=== PATIENT | male | born 1965 | race Caucasian/White ===

== ENCOUNTER 2023-10-20 11:08 | Emergency (ER) | payer OTHER, SELFPAY ==
[2023-10-20 11:10] VITALS: BP 158/93
[2023-10-20 11:21] VITALS: BP 145/87
[2023-10-20 12:00] VITALS: BP 155/83
--- NOTE | 2023-10-20 12:25 | ED.GENMED ---
History of Present Illness
General
Chief Complaint: Heart Rate Problem
Time Seen by Provider: 10/20/23 11:44
Travel History
Have you had any contact with someone who has COVID-19?: No
Do you have any symptoms of coronavirus? Fever > 100 degrees, chills, cough, shortness of breath, sore throat, loss of taste or smell, muscle aches, or headache?: No
History of Present Illness
History of Present Illness:
Patient is a 58 yo male with pmhx of asthma, hyperlipidemia, and GERD, here today for evaluation of an episode of palpitations and elevated heart rate that began just prior to arrival at approximately 10 AM while the patient was at the gym. Patient
reports he was exerting himself but found that his heart rate went between 180 to 190. This is not typical for the patient when he exerts himself. This lasted for a short period of time and came down with rest. Patient had no active symptoms
during the time of the heart rate elevation including chest pain, shortness of breath, dizziness, numbness, tingling, or weakness. He did note mild left-sided shoulder pain earlier but reports this is chronic and unchanged. He is currently
asymptomatic. No history of atrial fibrillation. He was previously seen by a senior interaction designer and reports going every 6 months.
Past History
Past History
ED Past Medical History: GERD
ED Past Surgical History: None
Social History
Tobacco: Non-smoker
Alcohol: None
Living: with family
Employment: Employed
Family History
Family History: Other (Noncontributory)
Review of Systems
Review of Systems
All Other Systems: ROS reviewed and negative except as documented in HPI and ROS
Phy Exam
Physical Exam
Physical Exam:
GENERAL: Alert , in no apparent distress
EYE: pupils equal and reactive
NECK: Supple, no significant adenopathy.
ENT: o/p clr, mmm.
CARDIAC: Regular rate and rhythm .
LUNGS: Clear breath sounds bilaterally, no acute respiratory distress, no wheezes/rales/rhonchi
ABDOMEN: Soft, without focal tenderness, no r/g, no cvat
NEUROLOGICAL: Alert and oriented, no focal neuro deficits
SKIN: Warm and dry, skin intact.
MUSCULOSKELETAL: No edema, well perfused.
PSYCH: Normal and appropriate interaction.
Course
Orders/Labs/Results
Orders:
Orders
10/20/23 11:14
Electrocardiogram (*1) Urgent
Reason for Study: Tachycardia
EKG- Treatment ONCE
10/20/23 12:18
CR Chest - 2 Views Urgent
Comment:
Reason For Exam: palpitations
10/20/23 12:34
Basic Metabolic Panel Urgent
Magnesium Urgent
Phosphorus Urgent
TSH Reflex To Free T4 Urgent
10/20/23 12:35
Complete Blood Count/With Diff Urgent
Troponin I Urgent
10/20/23 13:48
Diphenhydramine [Benadryl] 25 mg IV NOW STA
Prochlorperazine [Compazine] 10 mg IV NOW STA
Abnormal Lab Results
10/20/23 10/20/23
12:34 12:35
MPV 11.7 H fL
(7.4-10.4)
Absolute Lymphs (auto) 1.1 L 10^3/uL
(1.2-3.4)
Neutrophils % 77.9 H %
(42.2-75.2)
Lymphocytes % 14.1 L %
(20.5-51.1)
BUN 22 H mg/dl
(9-20)
10/20/23 12:35
10/20/23 12:34
Vital Signs
Initial and Last Documented VS:
Initial Vital Signs
Temp Pulse Resp BP Pulse Ox
97.7 F 98 22 158/93 96
10/20/23 11:10 10/20/23 11:10 10/20/23 11:10 10/20/23 11:10 10/20/23 11:10
Last Documented Vital Signs
Temp Pulse Resp BP Pulse Ox
97.7 F 81 16 155/83 97
10/20/23 11:10 10/20/23 13:45 10/20/23 13:45 10/20/23 12:00 10/20/23 12:15
MDM/Problems Addressed
Differential Diagnosis Includes:
Patient is a 58 yo male with pmhx of asthma, hyperlipidemia, and GERD, here today for evaluation of an episode of palpitations and elevated heart rate. Overall, patient appears well. He is currently asymptomatic. Vital signs remarkable for an
elevated blood pressure. Physical examination described above. Will place on adult education professional. Will obtain workup.
10/20/2023 13:35: Screening labs grossly within normal limits aside from a mildly elevated BUN of 22. Creatinine 1.2. This is slightly elevated from the patient's baseline of 1.0. EKG nonischemic. Chest x-ray negative. Patient monitored in the
emergency department without acute events. No recurrence of symptoms. Vital signs stable. Discussed treatment options with patient. Discussed observation in the hospital for further monitoring but patient declined. He does not want to be admitted
and would prefer to follow up with his doctor as an outpatient. At this time, patient appears well and suitable for discharge with close outpatient follow-up with cardiology. Patient will likely require a Holter monitor evaluation. Patient voices
understanding. He appears well and stable for discharge. Return precautions given for worsening symptoms. All questions answered.
*Critical Care Note
Total Time (30-74mins, 75-104mins- exclusive of procedures): Not Applicable
ED Attending Note
-
Portions of this chart may have been created with voice recognition software.� Occasional wrong word or��sound alike� substitutions may have occurred due to the inherent limitations of voice recognition software.
Discharge Plan
Departure
Patient Disposition: Home (Routine Discharge)
Date of Disposition: 10/20/23
Time of Disposition: 13:59
Patient with high blood pressure during this ER visit?: Yes
Condition: Good
Covid-19: Not Applicable
Discharge Problem:
Palpitations
Instructions: Palpitations (DC)
Prescriptions:
No Action
omeprazole 20 MG capsule,delayed release(DR/EC)
20 mg PO DAILY Qty: 0 0RF
prednisone 20 MG tablet
20 mg PO BID Qty: 10 0RF
famotidine 20 MG tablet
20 mg PO BID Qty: 10 0RF
Referrals:
Maikol Brown DO [Active] - Follow up in 1 week
John Perez MD [Family Provider] - Follow up in 2-3 days
Activity Restrictions/Additional Instructions:
You were seen today for evaluation of palpitations.
Your work workup is largely unremarkable.
Please monitor your symptoms and follow up closely with your doctor.
We also recommend following up with your senior interaction designer within 1 week.
Return for any new, worsening, or concerning symptoms.
Interventions
Interventions:
*Risk Screen - Suicide Last Done: 10/20/23 11:12
*General Assessment Last Done: 10/20/23 11:12
*Neglect/Abuse Screening Last Done: 10/20/23 11:12
ED- Fall Risk Assessment Last Done: 10/20/23 11:26
*ED COVID-19 Vaccine History Last Done: 10/20/23 11:12
ED- Cardiac Assessment Last Done: 10/20/23 11:26
ED- Pulmonary Assessment Last Done: 10/20/23 11:26
Discharge Date and Time
Print Language: ESTONIAN
[2023-10-20 12:49] LABS: % Basophils 0.4 % (0-2); % Eosinophils 0.5 % (0-6); % Immature Granulocytes 0.5 % (0-0.5); % Lymphocytes 14.1 % (20.5-51.1); % Monocytes 6.6 % (1.7-9.3); % Neutrophils 77.9 % (42.2-75.2); Absolute Lymphocytes 1.1 10^3/uL (1.2-3.4); Absolute Monocytes 0.5 10^3/uL (0.1-0.6); Absolute Neutrophils 5.8 10^3/uL (1.4-6.5); Hematocrit 44.5 % (39.0-52.0); Hemoglobin 14.7 g/dL (13.0-18.0); Mean Corpuscular Hgb 30.8 pg (27.0-31.0); Mean Corpuscular Volume 93.3 fL (80.0-94.0); Mean Platelet Volume 11.7 fL (7.4-10.4); Nucleated Red Blood Cells % 0 % (-); Platelet Count 235 10^3/uL (130-400); Red Blood Cell Count 4.77 10^6/uL (4.70-6.10); Red Cell Dist. Width 13.3 % (11.5-14.5); White Blood Cell Count 7.5 10^3/uL (4.8-10.8)
[2023-10-20 13:03] LABS: Blood Urea Nitrogen 22 mg/dl (9-20); Calcium 9.3 mg/dl (8.4-10.2); Carbon Dioxide 29 mmol/L (22-30); Chloride 104 mmol/L (98-107); Glucose 98 mg/dl (70-99); Magnesium 1.8 mg/dl (1.6-2.3); Phosphorus 2.8 mg/dl (2.5-4.5); Potassium 4.5 mmol/L (3.5-5.1); Sodium 137 mmol/L (135-145); eGFR > 60.00
[2023-10-20 13:06] LABS: Troponin I < 0.012 ng/ml
[2023-10-20 13:35] LABS: TSH Reflex To Free T4 1.93 uIU/ml (0.47-4.68)
== END 2023-10-20 14:06 | disposition home or self-care (01) ==
LOC: EMR 11:08
PROVIDERS: Physician Assistant; EMERGENCY PHYSICIAN Emergency Medicine; FAMILY PHYSICIAN Family Medicine
DX: R00.2 Palpitations (principal); J45.909 Unspecified asthma, uncomplicated; E78.00 Pure hypercholesterolemia, unspecified; K21.9 Gastro-esophageal reflux disease without esophagitis
CPT/HCPCS: 99283; 71046; 80048; 83735; 84100; 84443; 84484; 85025; 93005

== ENCOUNTER 2023-11-07 17:50 | Emergency (ER) | payer OTHER, SELFPAY ==
[2023-11-07 17:54] VITALS: BP 172/91
--- NOTE | 2023-11-07 18:21 | ED.GENMED ---
History of Present Illness
General
Chief Complaint: Chest Pain
Source: patient and spouse
Exam Limitations: none
Time Seen by Provider: 11/07/23 18:03
Nursing documentation reviewed up to this point in time: agreed with
Travel History
Have you had any contact with someone who has COVID-19?: No
Do you have any symptoms of coronavirus? Fever > 100 degrees, chills, cough, shortness of breath, sore throat, loss of taste or smell, muscle aches, or headache?: No
History of Present Illness
History of Present Illness:
58-year-old male with past medical history of hyperlipidemia asthma reflux presents the ER for evaluation of chest pain. Patient reports he had 2 episodes of chest pain today. His first episode was at 10 AM while sitting in his office he had
midsternal chest pain which lasted for about half hour. With that chest pain he had no associated shortness of breath nausea vomiting diaphoresis. Patient reports he had a second episode around [address] home[address] This pain was in his chest
clavicle area upper back area and he was nauseous. No shortness of breath. He also felt a little discomfort in his bilateral jaw region. He reports pain is barely they are almost gone. He has nitro at home but did not take it because he does not
like the way it makes him feel. He has a history of having intermittent episodes of chest pain in the past however has had unremarkable stress tests in past.
He is followed by Dr. Bland he has had episodes of chest pain in the past. He also reports he was seen here several weeks ago for elevated heart rate and just completed wearing his holter monitor today.
Past History
Past History
ED Past Medical History: GERD
ED Past Surgical History: None
Social History
Tobacco: Non-smoker
Alcohol: None
Living: with family
Employment: Employed
Family History
Family History: Other (Noncontributory)
Review of Systems
Review of Systems
Allergies reviewed?: Yes
All Other Systems: ROS reviewed and negative except as documented in HPI and ROS
Constitutional: Reports no symptoms; Denies fever, fatigue or chills
Respiratory: Denies trouble breathing
Cardiac: Reports chest pain
ABD/GI: Reports no symptoms
Musculoskeletal: Reports no symptoms
Skin: Reports no symptoms
Neurological: Reports no symptoms
Phy Exam
General Physical Exam
General Presentation: no apparent distress
General age: appears stated age
General Skin: warm and dry
General Habitus: obese
General Mental: alert
General Hydration: appears well hydrated
Cardiovascular Exam
Cardiovascular Exam: regular rate/rhythm
Pulmonary Exam
Pulmonary Exam: lungs clear and no respiratory distress
Neurological Exam
Neurological Exam: alert and oriented x3
Musculoskeletal Exam
Musculoskeletal Exam: full ROM
Skin Exam
Skin Exam: normal color and warm/dry
Psychiatric Exam
Psychiatric Exam: normal mood/affect
Scores
Heart Score for Chest Pain Patients
STEMI patient?: Not applicable
Course
Orders/Labs/Results
Orders:
Orders
11/07/23 17:51
ECG [Electrocardiogram (*1)] Urgent
Reason for Study: Chest Pain
EKG- Treatment ONCE
11/07/23 18:17
Complete Blood Count/With Diff Urgent
Comprehensive Metabolic Panel Urgent
PTT Urgent
Troponin I Urgent
11/07/23 19:56
Chest [CR Chest - 2 Views ] Urgent
Comment:
Reason For Exam: cp
11/07/23 19:59
EKG- Treatment ONCE
11/07/23 21:15
Electrocardiogram (*1) Stat
Reason for Study: Other
Other Reason for Exam: chest pain
11/07/23 21:25
Troponin I Urgent
Abnormal Lab Results
11/07/23
18:17
RBC 4.55 L 10^6/uL
(4.70-6.10)
MPV 11.4 H fL
(7.4-10.4)
Absolute Monos (auto) 0.7 H 10^3/uL
(0.1-0.6)
BUN 26 H mg/dl
(9-20)
11/07/23 18:17
11/07/23 18:17
Vital Signs
Initial and Last Documented VS:
Initial Vital Signs
Temp Pulse Resp BP Pulse Ox
98.0 F 71 20 172/91 96
11/07/23 17:54 11/07/23 17:54 11/07/23 17:54 11/07/23 17:54 11/07/23 17:54
Last Documented Vital Signs
Temp Pulse Resp BP Pulse Ox
98.0 F 68 20 138/70 96
11/07/23 17:54 11/07/23 20:15 11/07/23 20:15 11/07/23 20:00 11/07/23 20:15
MDM/Problems Addressed
MDM/Problems Addressed:
Patient is a 4-year-old male who had chest discomfort this morning at the office while sitting at his desk and again later this evening. Patient presented to the ER pain was barely there were resolved while he was here. He presented awake alert no
acute distress. He does see Dr. Bland. He actually just completed wearing a Holter monitor today for tachycardia. Patient was actually seen October 19 for palpitations and elevated heart rate.
Patient presented very nontoxic here in the ER with no acute findings on EKG. I reviewed patient's stress echo from just about a year ago September 2022 which was normal and overall low risk stress test. Patient also had a normal exercise stress test
in 2019.
Patient's first cardiac troponin is normal and EKG normal as well. He has remained asymptomatic in no acute distress here in the ER no chest pain no back pain no complaints of shortness of breath no concerning symptoms consistent with unstable
angina dissection, PE. Patient is well-appearing if negative second troponin and negative repeat EKG will plan to discharge home on chest pain hotline
*EKG
Interpreted by ED Provider?: Yes
Interpretation: normal
Comparison EKG: no changes
Heart Rate: 69
Rate: normal
Rhythm: sinus
QRS Pattern: normal QRS
Ischemia: other (Repeat EKG heart rate 68 unchanged)
*Critical Care Note
Total Time (30-74mins, 75-104mins- exclusive of procedures): Not Applicable
Data Reviewed
Review of Other/Old Records Reveals: Other (Stress test from 2019 is negative for ischemia; normal echo reviewed from September 2022(just about a year))
ED Attending Note
-
Portions of this chart may have been created with voice recognition software.� Occasional wrong word or��sound alike� substitutions may have occurred due to the inherent limitations of voice recognition software.
Discharge Plan
Departure
Patient Disposition: Home (Routine Discharge)
Date of Disposition: 11/07/23
Time of Disposition: 22:14
Patient with high blood pressure during this ER visit?: Yes
Condition: Fair
Covid-19: Not Applicable
Discharge Problem:
Chest pain
Instructions: Chest Pain DCA Follow Up
Referrals:
Jericho Bland MD [Active] -
John Perez MD [Family Provider] -
Activity Restrictions/Additional Instructions:
As discussed you are placed on the chest pain hotline which means you should receive a phone call from your cardiology office tomorrow if you do not please give them a call to schedule an appointment as soon as possible. Also as discussed you were
slightly dehydrated please increase your water intake.
Return if any worsening of symptoms
Interventions
Interventions:
*Risk Screen - Suicide Last Done: 11/07/23 18:05
*General Assessment Last Done: 11/07/23 18:05
*Neglect/Abuse Screening Last Done: 11/07/23 18:05
ED- Fall Risk Assessment Last Done: 11/07/23 18:05
*ED COVID-19 Vaccine History Last Done: 11/07/23 17:54
ED- Cardiac Assessment Last Done: 11/07/23 18:05
Discharge Date and Time
Print Language: MONGOLIAN
[2023-11-07 18:23] LABS: % Basophils 0.3 % (0-2); % Eosinophils 0.8 % (0-6); % Immature Granulocytes 0.4 % (0-0.5); % Lymphocytes 21.9 % (20.5-51.1); % Monocytes 8.1 % (1.7-9.3); % Neutrophils 68.5 % (42.2-75.2); Absolute Eosinophils 0.1 10^3/uL (0-0.7); Absolute Monocytes 0.7 10^3/uL (0.1-0.6); Absolute Neutrophils 6.1 10^3/uL (1.4-6.5); Hematocrit 41.8 % (39.0-52.0); Hemoglobin 14.1 g/dL (13.0-18.0); Mean Corp Hgb Conc. 33.7 g/dL (33.0-37.0); Mean Corpuscular Volume 91.9 fL (80.0-94.0); Mean Platelet Volume 11.4 fL (7.4-10.4); Nucleated Red Blood Cells % 0 % (-); Platelet Count 239 10^3/uL (130-400); Red Blood Cell Count 4.55 10^6/uL (4.70-6.10); Red Cell Dist. Width 13.4 % (11.5-14.5); White Blood Cell Count 8.9 10^3/uL (4.8-10.8)
[2023-11-07 18:36] LABS: APTT 28.9 Sec (23.4-35.0)
[2023-11-07 18:38] LABS: ALT (SGPT) 26 U/L (0-50); AST (SGOT) 32 U/L (17-59); Albumin 4.3 g/dl (3.5-5.0); Alkaline Phosphatase 118 U/L (38-126); Blood Urea Nitrogen 26 mg/dl (9-20); Calcium 9.5 mg/dl (8.4-10.2); Carbon Dioxide 27 mmol/L (22-30); Chloride 102 mmol/L (98-107); Glucose 91 mg/dl (70-99); Potassium 4.3 mmol/L (3.5-5.1); Sodium 136 mmol/L (135-145); Total Bilirubin 0.6 mg/dl (0.2-1.3); Total Protein 6.8 g/dl (6.3-8.2); eGFR > 60.00
[2023-11-07 18:49] LABS: Troponin I < 0.012 ng/ml
[2023-11-07 19:00] VITALS: BP 126/74
[2023-11-07 20:00] VITALS: BP 138/70
[2023-11-07 21:28] VITALS: BP 142/74
[2023-11-07 21:30] VITALS: BP 144/85
[2023-11-07 22:00] VITALS: BP 129/78
[2023-11-07 22:03] LABS: Troponin I < 0.012 ng/ml
== END 2023-11-07 22:47 | disposition home or self-care (01) ==
LOC: EMR 17:50
PROVIDERS: Nurse Practitioner; EMERGENCY PHYSICIAN Student in an Organized Health Care Education/Training Program; FAMILY PHYSICIAN Family Medicine
DX: R07.9 Chest pain, unspecified (principal); R11.0 Nausea; R03.0 Elevated blood-pressure reading, without diagnosis of hypertension
CPT/HCPCS: 99285; 71046; 80053; 84484; 85025; 85730; 93005

== ENCOUNTER → 2023-11-21 11:22 | Outpatient (REF) | payer OTHER, SELFPAY | LOC: DHCBC/DCA 11:22 | PROVIDERS: ATTENDING PHYSICIAN Internal Medicine Cardiovascular Disease; FAMILY PHYSICIAN Family Medicine | DX: R07.89 Other chest pain (principal) | CPT/HCPCS: 78452; 93017; A9500 ==

== ENCOUNTER → 2024-02-07 12:48 | Outpatient (REF) | payer OTHER, SELFPAY | LOC: HWRAD 12:48 | PROVIDERS: ATTENDING PHYSICIAN Student in an Organized Health Care Education/Training Program | DX: M54.6 Pain in thoracic spine (principal) | CPT/HCPCS: 71046; 72072 ==

== ENCOUNTER → 2024-02-29 06:17 | Day surgery (SDC) | payer OTHER, SELFPAY | LOC: GI 06:17 | PROVIDERS: ATTENDING PHYSICIAN Internal Medicine Gastroenterology; FAMILY PHYSICIAN Family Medicine | DX: Z12.11 Encounter for screening for malignant neoplasm of colon (principal); K64.8 Other hemorrhoids; K57.30 Diverticulosis of large intestine without perforation or abscess without bleeding; D12.4 Benign neoplasm of descending colon; R12 Heartburn; K44.9 Diaphragmatic hernia without obstruction or gangrene | CPT/HCPCS: 45380; 43235; 88305 ==

== ENCOUNTER → 2024-03-19 07:56 | Outpatient (REF) | payer OTHER, SELFPAY | LOC: RAD 07:56 | PROVIDERS: ATTENDING PHYSICIAN Specialist; FAMILY PHYSICIAN Family Medicine | DX: R31.9 Hematuria, unspecified (principal) | CPT/HCPCS: 74178; Q9967 ==

== ENCOUNTER 2024-03-26 06:59 | Day surgery (SDC) | payer OTHER, SELFPAY ==
[2024-03-26] VITALS (8 sets, daily range): BP systolic 121–153; BP diastolic 75–106; BMI 40.1
[2024-03-26] MEDS: Pyridium 200 MG PO (16:19)
== END 2024-03-26 17:10 | disposition home or self-care (01) ==
LOC: SDS 06:59
PROVIDERS: ATTENDING PHYSICIAN Specialist
DX: N20.2 Calculus of kidney with calculus of ureter (principal)
CPT/HCPCS: 52356; 74018; 76000; C1758; C1769; C1894; C2617

== ENCOUNTER → 2024-05-20 08:06 | Outpatient (REF) | payer OTHER, SELFPAY | LOC: RAD 08:06 | PROVIDERS: ATTENDING PHYSICIAN Internal Medicine Cardiovascular Disease; FAMILY PHYSICIAN Family Medicine | DX: R03.0 Elevated blood-pressure reading, without diagnosis of hypertension (principal); Z82.49 Family history of ischemic heart disease and other diseases of the circulatory system | CPT/HCPCS: 76770 ==

== ENCOUNTER → 2024-06-18 12:00 | Outpatient (REF) | payer OTHER, SELFPAY | LOC: DHSLP 12:00 | PROVIDERS: ATTENDING PHYSICIAN Internal Medicine; FAMILY PHYSICIAN Family Medicine | DX: G47.19 Other hypersomnia (principal); R06.83 Snoring | CPT/HCPCS: 95800 ==

== ENCOUNTER 2024-08-09 09:50 | Emergency (ER) | payer OTHER, SELFPAY ==
[2024-08-09 09:59] VITALS: BP 147/86
[2024-08-09 10:12] VITALS: BMI 40.1
--- NOTE | 2024-08-09 10:21 | ED.GENMED ---
History of Present Illness
General
Chief Complaint: Heart Rate Problem
Source: patient
Exam Limitations: none
Time Seen by Provider: 08/09/24 10:05
History of Present Illness
History of Present Illness:
See MDM
Past History
Past History
ED Past Medical History: GERD
ED Past Surgical History: None
Social History
Tobacco: Non-smoker
Alcohol: None
Living: with family
Employment: Employed
Family History
Family History: Other (Noncontributory)
Phy Exam
Physical Exam
Physical Exam:
See MDM
Course
Orders/Labs/Results
Orders:
Orders
08/09/24 09:51
Electrocardiogram (*1) Urgent
Reason for Study: Palpitations
EKG- Treatment ONCE
08/09/24 10:14
Complete Blood Count/With Diff Urgent
Comprehensive Metabolic Panel Urgent
Magnesium Urgent
TSH Reflex To Free T4 Urgent
Troponin I Urgent
08/09/24 11:24
Diltiazem Extended Release [Cardizem Cd] 120 mg PO NOW STA
Abnormal Lab Results
08/09/24
10:14
MCV 95.0 H fL
(80.0-94.0)
MCH 31.3 H pg
(27.0-31.0)
MCHC 32.9 L g/dL
(33.0-37.0)
MPV 11.4 H fL
(7.4-10.4)
Lymphocytes % 19.8 L %
(20.5-51.1)
Carbon Dioxide 31 H mmol/L
(22-30)
BUN 23 H mg/dl
(9-20)
Glucose 107 H mg/dl
(70-99)
08/09/24 10:14
08/09/24 10:14
Vital Signs
Initial and Last Documented VS:
Initial Vital Signs
Temp Pulse Resp Pulse Ox
97.7 F 95 16 99
08/09/24 09:56 08/09/24 09:56 08/09/24 09:56 08/09/24 09:56
Last Documented Vital Signs
Temp Pulse Resp BP Pulse Ox
97.7 F 69 19 132/66 98
08/09/24 09:56 08/09/24 11:42 08/09/24 11:42 08/09/24 11:42 08/09/24 09:59
MDM/Problems Addressed
Differential Diagnosis Includes:
HPI and MDM Narrative:
59-year-old male presenting for evaluation of palpitations. Patient states he woke up and he felt fatigued and dizzy. His Apple Watch indicated that his heart rate was in the 40s. The symptoms lasted for approximately an hour or so. Symptoms
have improved. Patient is on losartan and atorvastatin. He denies any history of beta-blockers or coronary artery disease. He currently denies any chest pain. He has been evaluated by cardiology, Dr. Turner, in the past and was told that his
heart looks okay and he has 'an extra heartbeat'. Discussed with patient that that could potentially mean PVCs.
Patient is well-appearing nontoxic. His EKG has a sinus rhythm with bigeminy pattern. Will obtain basic blood work and will discuss case with cardiology
Physical exam
General: Well appearing and non-toxic
HEENT: protecting airway
Neck: appears supple
CV: No evidence of cyanosis. Irregular rhythm
Resp: No accessory muscle use
Abd: Non-distended
Extremities: No deformities
Neuro: alert
Psych: Normal affect
Skin: Intact
Problems Addressed including Acute and Chronic Conditions affecting care:
1. [Palpitation
Acuity: acute
Prognosis: stable
Details: Will obtain basic blood work and discussed case with cardiology
Updates
Case discussed with cardiology who agrees with atrial bigeminy and discussed starting low-dose Cardizem and having workup completed as an outpatient. Patient comfortable with plan
Differential Diagnosis (but not limited to): Hypothyroidism, hypomagnesemia, ACS
Testing considered: Chest x-ray
Drug therapy (if applicable): OTC meds, please see d/c instruction regarding Rx drugs
Amount and/or Complexity of Data Reviewed
Clinical info obtained from: Patient
External data reviewed: N/A
Labs I independently reviewed (but not limited to): Troponin normal, TSH normal
Radiology: N/A
Pulse Ox: not hypoxic
EKG independently reviewed: Sinus rhythm, bigeminy, no STEMI
Manager Sales And Marketing: Bigeminy
Critical Care: N/A
Risk of Complication:
Social Determinants of health: Good social support
Discussed with other providers: Cardiology
Escalation of Care includes Admit/Obs: After being observed in the Emergency Department, pt stable for discharge.
Occasional wrong word or 'sound a like' substitutions may have occurred due to the inherent limitations of voice recognition software. Read the chart carefully and recognize, using context, where substitutions have occurred.
*Critical Care Note
Total Time (30-74mins, 75-104mins- exclusive of procedures): Not Applicable
ED Attending Note
-
Portions of this chart may have been created with voice recognition software.� Occasional wrong word or��sound alike� substitutions may have occurred due to the inherent limitations of voice recognition software.
Discharge Plan
Departure
Patient Disposition: Home (Routine Discharge)
Date of Disposition: 08/09/24
Time of Disposition: 12:26
Patient with high blood pressure during this ER visit?: No
Discharge Problem:
Atrial bigeminy
Instructions: Chest Pain CBC Follow Up
Prescriptions:
New
diltiazem HCl 120 mg capsule,extended release 24hr
120 mg PO DAILY Qty: 30 0RF
No Action
atorvastatin 20 mg Tablet
20 mg PO DAILY
omeprazole 20 mg Tablet,Delayed Release (Dr/Ec)
20 mg PO DAILY
acetaminophen [Tylenol] 325 mg Tablet
650 mg PO Q4H PRN (Reason: pain)
albuterol 90 mcg/actuation Aerosol
90 mcg INHALATION PRN PRN (Reason: wheezing)
Referrals:
John Perez MD [Family Provider] -
Activity Restrictions/Additional Instructions:
Please return for any worsening symptoms.
You may return at any time if you have further concerns.
Please follow up with your doctor at the first available appointment, preferably this week.
You were placed on the cardiac callback tracker. Someone from their office should call you in the next few days. If you do not hear from them in the next few days, please give them a call.
Thank you for choosing [facility].
Interventions
Interventions:
*Risk Screen - Suicide Last Done: 08/09/24 09:59
*General Assessment Last Done: 08/09/24 10:12
*Neglect/Abuse Screening Last Done: 08/09/24 09:59
ED- Fall Risk Assessment Last Done: 08/09/24 10:12
*ED COVID-19 Vaccine History Last Done: 08/09/24 10:12
ED- Cardiac Assessment Last Done: 08/09/24 10:12
ED- Pulmonary Assessment Last Done: 08/09/24 10:12
Discharge Date and Time
Print Language: HEBREW
[2024-08-09 10:34] LABS: % Basophils 0.6 % (0-2); % Eosinophils 0.9 % (0-6); % Immature Granulocytes 0.4 % (0-0.5); % Lymphocytes 19.8 % (20.5-51.1); % Monocytes 9.2 % (1.7-9.3); % Neutrophils 69.1 % (42.2-75.2); Absolute Eosinophils 0.1 10^3/uL (0-0.7); Absolute Lymphocytes 1.4 10^3/uL (1.2-3.4); Absolute Monocytes 0.6 10^3/uL (0.1-0.6); Absolute Neutrophils 4.8 10^3/uL (1.4-6.5); Hematocrit 47.4 % (39.0-52.0); Hemoglobin 15.6 g/dL (13.0-18.0); Mean Corp Hgb Conc. 32.9 g/dL (33.0-37.0); Mean Corpuscular Hgb 31.3 pg (27.0-31.0); Mean Platelet Volume 11.4 fL (7.4-10.4); Nucleated Red Blood Cells % 0 % (-); Platelet Count 237 10^3/uL (130-400); Red Blood Cell Count 4.99 10^6/uL (4.70-6.10); Red Cell Dist. Width 12.9 % (11.5-14.5); White Blood Cell Count 6.9 10^3/uL (4.8-10.8)
[2024-08-09 10:42] LABS: ALT (SGPT) 33 U/L (0-50); AST (SGOT) 26 U/L (17-59); Albumin 4.5 g/dl (3.5-5.0); Alkaline Phosphatase 114 U/L (38-126); Blood Urea Nitrogen 23 mg/dl (9-20); Calcium 9.2 mg/dl (8.4-10.2); Carbon Dioxide 31 mmol/L (22-30); Chloride 101 mmol/L (98-107); Estimated Creatinine Clearance 100 ml/min; Glucose 107 mg/dl (70-99); Potassium 4.7 mmol/L (3.5-5.1); Sodium 140 mmol/L (135-145); Total Bilirubin 0.6 mg/dl (0.2-1.3); eGFR > 60.00
[2024-08-09 10:52] LABS: Troponin I < 0.012 ng/ml
[2024-08-09 11:40] LABS: TSH Reflex To Free T4 1.98 uIU/ml (0.47-4.68)
[2024-08-09 11:42] VITALS: BP 132/66
[2024-08-09] MEDS: CARDIZEM CD 120 MG PO (11:42)
[2024-08-09 12:47] VITALS: BP 129/72
== END 2024-08-09 13:00 | disposition home or self-care (01) ==
LOC: EMR 09:50
PROVIDERS: EMERGENCY PHYSICIAN Student in an Organized Health Care Education/Training Program; FAMILY PHYSICIAN Family Medicine
DX: R00.8 Other abnormalities of heart beat (principal); K21.9 Gastro-esophageal reflux disease without esophagitis
CPT/HCPCS: 99284; 80053; 83735; 84443; 84484; 85025; 93005

== ENCOUNTER → 2024-12-02 07:48 | Outpatient (REF) | payer OTHER, SELFPAY | LOC: RCS 07:48 | PROVIDERS: ATTENDING PHYSICIAN Internal Medicine Cardiovascular Disease; FAMILY PHYSICIAN Family Medicine | DX: R00.0 Tachycardia, unspecified (principal); I48.0 Paroxysmal atrial fibrillation | CPT/HCPCS: 93005; 93306 ==

== ENCOUNTER 2025-03-10 08:16 | Day surgery (SDC) | payer OTHER, SELFPAY ==
[2025-03-03 07:59] VITALS: BMI 40.5
[2025-03-03 08:28] LABS: Hematocrit 45.5 % (39.0-52.0); Hemoglobin 14.9 g/dL (13.0-18.0); Mean Corp Hgb Conc. 32.7 g/dL (33.0-37.0); Mean Corpuscular Volume 95.2 fL (80.0-94.0); Nucleated Red Blood Cells % 0 % (-); Platelet Count 222 10^3/uL (130-400); Red Cell Dist. Width 13.1 % (11.5-14.5)
[2025-03-03 08:56] LABS: ALT (SGPT) 25 U/L (0-50); AST (SGOT) 23 U/L (17-59); Albumin 4.2 g/dl (3.5-5.0); Alkaline Phosphatase 113 U/L (38-126); Blood Urea Nitrogen 24 mg/dl (9-20); Calcium 9.5 mg/dl (8.4-10.2); Carbon Dioxide 26 mmol/L (22-30); Chloride 107 mmol/L (98-107); Estimated Creatinine Clearance 107 ml/min; Glucose 91 mg/dl (70-99); Potassium 4.4 mmol/L (3.5-5.1); Sodium 140 mmol/L (135-145); Total Protein 6.8 g/dl (6.3-8.2); eGFR > 60.00
[2025-03-10] VITALS (14 sets, daily range): BP systolic 121–149; BP diastolic 67–84
[2025-03-10 12:13] LABS: ACT-LR - POC 395 Seconds (116-155)
--- NOTE | 2025-03-10 12:45 | ITS.CL.ABL ---
[employer] [facility] - Ablation
Ablation
Procedure Report:
AFIB ablation:
Mr. Valdez is a very pleasant 59 yr old gentleman with medical history significant for symptomatic paroxysmal atrial fibrillation is here in the EP lab for atrial fibrillation ablation
Date of Procedure:
03/10/2025
Indications:
Symptomatic paroxysmal atrial fibrillation
Pre-Operative Diagnosis:
Paroxysmal atrial fibrillation
Post-Operative Diagnosis:
Paroxysmal atrial fibrillation
Procedure Performed:
Atrial fibrillation ablation with wide area circumferential ablation (WACA) approach for pulmonary vein isolation
Performing Physician:
David Lee MD
Assistants:
EP staff
Anesthesia:
See anesthesia records
Detailed Description of the Procedure:
Written informed consent was obtained from the patient after a full explanation of the risks and benefits of the procedure including the risks of sedation and anesthesia.
The patient was brought to the electrophysiology laboratory in stable condition in fasting state. Continuous electrocardiographic and hemodynamic monitoring was initiated.
The initial rhythm was sinus rhythm.
The procedure site was meticulously prepared with surgical scrub and allowed to dry with no pooling. Sterile draping was applied to cover the procedure site. The image intensifier was draped with sterile bag and positioned over the patient. After
infusion of local anesthetic, vascular access was obtained under ultrasound guidance and sheaths were placed over guide wire as detailed below.
The images of the ultrasound of the femoral vessels were stored in patient chart.
Sheath and Catheter Placement:
In the right femoral vein, a 10-Cypriot sheath was placed under ultrasound guidance for use during the ablation procedure. In the right femoral vein, another 9-Fr sheath was placed for use during intracardiac echo procedure.
The sheaths were upgraded as needed during the case. Intracardiac catheters were positioned using direct fluoroscopic guidance.� ICE catheter was placed in RA. The following catheters / sheaths were placed
Sheaths:
��������� Agilis sheath in right femoral vein upgraded from 10Fr in right femoral vein
��������� 9Fr in right femoral vein
Catheters:
��������� The Affera Sphere 9 catheter -bidirectional D/F� - at locations of HRA, LA and LV.
��������� ICE catheter -AccuNav -� at locations of RA, SVC, and RV.
Heparin was initiated after the access was obtained.
Intracardiac ECHO:
An 8-Cypriot AcuNav intracardiac ECHO (ICE) probe was advanced through the 9-Cypriot sheath in the left femoral vein into the right atrium under fluoroscopic and ICE ultrasound image guidance and a baseline ECHO study was performed. The left atrial
size was mildly dilated. There was trace tricuspid regurgitation. The aortic valve was grossly normal. There was normal left ventricular size and function. There is a trace pericardial effusion. The NATHAN has baseline normal velocities. The pulmonary
had good flow identified.
During the procedure, ICE was used for monitoring of complications, guidance of trans-septal puncture, monitor the catheter position and tracking ablation lesions. No change in the pericardial space noted throughout the procedure.
Trans-septal Puncture:
Heparin was initiated and infused to maintain appropriate ACT. A J-tipped guidewire was advanced through into the superior vena cava under fluoroscopic and ICE guidance. The Agilis sheath with BRK needle was advanced into the superior vena cava over
the guidewire. The apparatus was withdrawn until it was in contact with the fossa ovalis. The position was adjusted based on fluoroscopy and ultrasound images from ICE. Under fluoroscopic, hemodynamic and ICE ultrasound guidance, left atrium was
cannulated by advancing the needle. Once atrial septum was cannulated, the needle was pulled back and the guide wire was advanced through the needle into the left atrium. The guide wire was advanced into the left superior pulmonary vein. Both the
sheath and the dilator was advanced into the left atrium. The dilator with the needle was withdrawn. Blood was aspirated from the Agilis sheath and arterial blood confirmed. The sheath was flushed. Saline injection noted into the left atrium on ICE.
The waveform of the LA pressure was recorded. The mapping catheter was advanced in the Agilis sheath into the left pulmonary vein.
3D Electroanatomic Mapping:
Using the Sphere 9 Affera catheter advanced through Agilis sheath into the left atrium, an electroanatomic map (EAM) of the left atrium was created using [employer]� mapping system with Prism-1 software. The map was used for localization of catheter
position and tacking of ablation lesions. The EAM of the left atrium showed a total of 4 PVs with a two left and two right sided pulmonary veins with all electrically connected to the body the LA. It showed no significant scar on the posterior wall
of the LA. The LA was dilated in size.
Following the EAM, preparation were made for ablation.
Ablation:
Ablation # 2: Pulmonary vein Isolation:
Glycopyrrolate 0.2 mg was given prior to the placement of ablation.
Pulsed field ablation was performed using an open irrigation, bidirectional, contact sensing, dual energy ablation catheter ([employer] sphere -9) by completing the circumferential lesions around the left and right pulmonary veins achieving pulmonary
vein isolation.
Confirmation of the PVI and bidirectional block:
Following achievement of entrance block at the pulmonary veins, pacing from the Sphere 9 affera catheter in each of the four veins at 20 milliamps for 4 milliseconds showed entrance and exit block.
The LA was mapped with The [employer]� mapping system with Prism-1 software in sinus rhythm confirming the line of block at the ablation lesions lines.
�
EP study:
Sinus Node Function: The sinus node functions are within acceptable normal range.
Atrioventricular Clarissa Function: �Normal AV conduction noted with normal AV clarissa conduction time.
Procedure End
ICE study was done again that showed no epicardial accumulation. No complications noted.
Following the completion of the EP study, catheters were removed. Protamine 30 mg was given at the end of the procedure and ACT was checked repeatedly. The sheaths were removed and hemostasis achieved with Figure of 8 suture and manual compression
after acceptable ACT is achieved.
Left atrial Pressure:
Pre-Procedure: Mean LA pressure was 6mmHg
Post-Procedure: Mean LA pressure was 7mmHg
Post-Procedure: Mean RA pressure was 5mmHg
Estimated Blood loss:
<10 cc
Specimens Removed:
None.
Implants / Devices:
None
Urine output:
None
Packs / Drains/ Tubes:
None
Instrument / Sponge Count Correct:
Yes
Complications of the Procedure:
None
Condition of Patient at Time of Transfer:
Hemodynamically stable with no neurological or vascular compromise.
Summary:
��������� Successful atrial fibrillation ablation with circumferential bidirectional line of block at pulmonary vein antra (Pulmonary vein isolation)
Figures from the Procedure:
Figure 1: The electroanatomic mapping (EAM) of the left atrium with bipolar voltage (purple indicates normal electrical activity with red as no myocardial muscle electric activity indicating a line of block or scar.
--- NOTE | 2025-03-10 17:18 | W.PN.UPDATE ---
Update Note
Progress Note Update
59 yo WM s/p PVI (same day). He has some mild sore throat and chest heaviness, no sob, nikki diet, voiding, EKG SR, R fem site c/d/i no HT, soft. He will resume Eliquis tonight and continue diltiazem. Activity restrictions reviewed. He will f/u
[facility] in 2 week. He is for d/c home after 530p if groin stable
== END 2025-03-10 17:50 | disposition home or self-care (01) ==
LOC: CATH 08:16
PROVIDERS: ATTENDING PHYSICIAN Internal Medicine Cardiovascular Disease; FAMILY PHYSICIAN Family Medicine; OTHER PHYSICIAN Internal Medicine Cardiovascular Disease
DX: I48.0 Paroxysmal atrial fibrillation (principal); I10 Essential (primary) hypertension; E78.5 Hyperlipidemia, unspecified; K21.9 Gastro-esophageal reflux disease without esophagitis; J45.909 Unspecified asthma, uncomplicated; Z79.01 Long term (current) use of anticoagulants
CPT/HCPCS: C1769; C1894; C1730; C1733; C1766; C1892; C1759; 36415; 80053; 85025; 85347; 86850; 86900; 86901; 93005; 93656